=== PATIENT | female | born 1990 | race African-American/Black ===

== ENCOUNTER 2022-03-06 21:22 | Emergency (ER) | payer OTHER, SELFPAY ==
[2022-03-06 21:33] VITALS: BP 138/87; PULSE 90; RESP 18; TEMP 36.8; O2SAT 100
[2022-03-06 21:57] LABS: Appearance Urine Clear (Clear); Bilirubin Urine Negative (Negative); Blood Urine 1+ (Negative); Color Urine Yellow (Yellow); Glucose Urine UA Negative (Negative); Ketones Urine Negative (Negative); Leukocyte Esterase Ur Negative LEU/UL (Negative); Nitrate Urine Negative (Negative); Protein Urine Negative (Negative); Specific Grav Ur >= 1.030 (1.001-1.035); Urobilinogen Urine 0.2 mg/dL (<2.0); pH Urine 5.5 (5.0-9.0)
[2022-03-06 22:05] LABS: Bacteria Urine Trace /hpf; Mucus Urine Rare /lpf; Squamous Epithelial Cell Urine Many /hpf (Few)
[2022-03-06 22:06] LABS: Add Urine Microscopic? YES
--- NOTE | 2022-03-06 22:30 | ED.FEMALEGU ---
HPI - Female Genitourinary General Chief complaint: Urogenital-Female Stated complaint: dysuria Time Seen by Provider: 03/06/22 21:34 History of Present Illness HPI Narrative: 31-year-old female presents the emergency room with complaints of intermittent low back pain and occasional dysuria for 3 days. Patient states this is similar to her prior urinary tract infections. Patient denies any abdominal pain, suprapubic pain, or fever. Related Data Allergies Allergy/AdvReac Type Severity Reaction Status Date / Time Penicillins Allergy Hives Verified 03/06/22 21:40 Review of Systems Review of Systems: CONSTITUTIONAL: Denies fever, chills, or sweats. EYES: Denies visual changes, redness, or discharge. ENT: Denies rhinorrhea, congestion, sore throat, or otalgia. CARDIOVASCULAR: Denies chest pain, palpitations, or edema. RESPIRATORY: Denies cough or dyspnea. GASTROINTESTINAL: Denies abdominal pain, nausea, vomiting, or diarrhea. GENITOURINARY: Reports dysuria or hematuria. SKIN: Denies rash or itching. MUSCULOSKELETAL: Reports back pain NEUROLOGIC: Denies headache, numbness, dizziness, or weakness. PSYCHIATRIC: Denies anxiety or depression. Exam Narrative: GENERAL: Well-appearing, well-nourished, and in no acute distress. HEAD: Normocephalic, atraumatic. EYES: PERRLA and EOMI. CHEST: Clear to auscultation. No respiratory distress. No wheezes rales or rhonchi HEART: Regular rate and rhythm. No murmur heard. Normal peripheral pulses. ABDOMEN: Soft, nontender, nondistended, normal active bowel sounds. No CVA tenderness, no suprapubic pain EXTREMITIES: Normal range of motion. No edema. SKIN: Warm, dry, no rash. NEURO: No focal deficits. Alert and oriented x3. PSYCH: Normal mood and affect. Course Vital Signs Vital signs: Vital Signs Temperature 36.8 C 03/06/22 21:33 Pulse Rate 90 03/06/22 21:33 Respiratory Rate 18 03/06/22 21:33 Blood Pressure 138/87 03/06/22 21:33 Pulse Oximetry 100 03/06/22 21:33 Oxygen Delivery Room Air 03/06/22 21:33 Temperature 36.8 C 03/06/22 21:33 Pulse Rate 90 03/06/22 21:33 Respiratory Rate 18 03/06/22 21:33 Blood Pressure 138/87 03/06/22 21:33 Pulse Oximetry 100 03/06/22 21:33 Oxygen Delivery Room Air 03/06/22 21:33 MDM - Female Genitourinary Lab Data Labs: Lab Results 03/06/22 Range/Units 21:46 Urine Color Yellow (Yellow) Urine Appearance Clear (Clear) Urine pH 5.5 (5.0-9.0) Ur Specific [facility] >= 1.030 (1.001-1.035) Urine Protein Negative (Negative) mg/dL Urine Glucose (UA) Negative (Negative) mg/dL Urine Ketones Negative (Negative) mg/dL Ur Blood (Man) 1+ H (Negative) Urine Nitrate Negative (Negative) Urine Bilirubin Negative (Negative) Urine Urobilinogen 0.2 (<2.0) mg/dL Leukocyte Esterase Rfl Negative (Negative) MARYBETH/UL Urine RBC 3-5 H (0-2) /hpf Urine WBC 4-6 H /hpf Ur Squamous Epith Cells Many H (Few) /hpf Urine Bacteria Trace /hpf Urine Mucus Rare /lpf UCG Bedside Result Negative Reference Range: Negative Discharge Plan Discharge Clinical Impression: Urinary tract infection Patient Disposition: Home, Self-Care Condition: Stable Instructions: Antibiotic Form, Urinary Tract Infection in Women (ED) Prescriptions: New nitrofurantoin monohyd/m-cryst [Macrobid] 100 mg capsule 100 mg PO Q12H 5 Days Qty: 10 0RF Rx Instructions: must administer with a meal/food Follow-up/Referrals: UNKNOWN,DOCTOR [Non-Staff] - Time of Disposition: 22:32
[2022-03-06 23:13] VITALS: BP 114/77; PULSE 78; RESP 20; TEMP 36.6; O2SAT 98
== END 2022-03-06 23:14 | disposition home or self-care (01) ==
LOC: ANHED 23:03
PROVIDERS: Emergency Provider Nurse Practitioner Family
DX: N39.0 Urinary tract infection, site not specified (principal)
CPT/HCPCS: 81001; 81025; 99283

== ENCOUNTER 2022-09-01 19:15 | Emergency (ER) | payer OTHER, SELFPAY ==
[2022-09-01 19:21] VITALS: BP 99/70; PULSE 106; RESP 20; TEMP 38.5; O2SAT 99
--- NOTE | 2022-09-01 20:13 | ED.GENADULT ---
HPI - General Adult General Chief complaint: Upper Respiratory Infection Stated complaint: uri Time Seen by Provider: 09/01/22 19:49 Source: RN notes reviewed History of Present Illness HPI narrative: Patient presents emergency department from home for upper respiratory infection. Patient states symptoms began 4 days ago. States that she has been having fevers, rhinorrhea, sore throat and a cough that has been nonproductive she denies any chest pain or shortness of breath she denies any abdominal pain nausea vomiting. States she took Tylenol earlier today for her fever Related Data Allergies Allergy/AdvReac Type Severity Reaction Status Date / Time Penicillins Allergy Hives Verified 03/06/22 21:40 Review of Systems Review of Systems: General: Reports fevers and chills Eyes: Denies eye pain or visual change ENT: See HPI Respiratory: Denies shortness of breath reports cough CV: Denies chest pain or palpitations GI: Denies abdominal pain nausea, emesis or diarrhea Musculoskeletal: Denies back pain or muscle pain Neuro: Denies numbness, tingling, weakness or focal weakness Skin: Denies rash Except as documented, all other systems reviewed and negative [facility] Past Medical History Medical History (Updated 09/01/22 @ 20:27 by Elliot Salinas DO) Patient denies significant medical history Social History Social History (Updated 09/01/22 @ 20:14 by Elliot Salinas DO) Smoking status: Never smoker Exam Narrative: APPEARANCE: No acute distress, nontoxic, resting in bed EYES: EOMI HEENT: Normocephalic, atraumatic, TMs clear bilaterally bilateral turbinates boggy, erythematous posterior pharynx and bilateral tonsils with no exudate uvula midline no trismus RESPIRATORY: No respiratory distress Clear to auscultation bilaterally with no rhonchi wheezing or rales. CARDIOVASCULAR: Regular rate and rhythm without murmurs rubs or gallops. ABDOMINAL: Soft, nontender, nondistended, no rebound or guarding MUSCULOSKELETAl: Moves all extremities. No clubbing, cyanosis or edema. NEURO: Awake and alert. Following commands, speech normal, no focal deficits SKIN:: Warm, dry. No rashes lesions or abrasions PSYCHIATRIC: Normal affect/mood, Course Course Emergency Course: Discussed with patient results of workup and diagnosis. Discussed need for follow-up with primary care, proper use of medication, and reasons to return to the emergency department. Patient understands and agrees to current treatment plan Vital Signs Vital signs: Vital Signs Temperature 101.3 F H 09/01/22 19:21 Pulse Rate 106 H 09/01/22 19:21 Respiratory Rate 20 09/01/22 19:21 Blood Pressure 99/70 L 09/01/22 19:21 Pulse Oximetry 99 09/01/22 19:21 Oxygen Delivery Room Air 09/01/22 19:21 Temperature 101.3 F H 09/01/22 19:21 Pulse Rate 106 H 09/01/22 19:21 Respiratory Rate 20 09/01/22 19:21 Blood Pressure 99/70 L 09/01/22 19:21 Pulse Oximetry 99 09/01/22 19:21 Oxygen Delivery Room Air 09/01/22 19:21 Medical Decision Making Vital Signs Vital Signs: Vital Signs Temperature 101.3 F H 09/01/22 19:21 Pulse Rate 106 H 09/01/22 19:21 Respiratory Rate 20 09/01/22 19:21 Blood Pressure 99/70 L 09/01/22 19:21 Pulse Oximetry 99 09/01/22 19:21 Oxygen Delivery Room Air 09/01/22 19:21 Temperature 101.3 F H 09/01/22 19:21 Pulse Rate 106 H 09/01/22 19:21 Respiratory Rate 20 09/01/22 19:21 Blood Pressure 99/70 L 09/01/22 19:21 Pulse Oximetry 99 09/01/22 19:21 Oxygen Delivery Room Air 09/01/22 19:21 Lab Data Labs: Lab Results 09/01/22 Range/Units 19:25 Influenza A (RT-PCR) Positive (Negative) Influenza B (RT-PCR) Negative (Negative) RSV (RT-PCR) Negative (Negative) SARS-CoV-2 RNA (RT-PCR) Negative Discharge Plan Discharge Clinical Impression: Influenza A Patient Disposition: Home, Self-Care Condition: Stable Instructions: Antibiotic Form, Influen
[2022-09-01 20:14] LABS: Influenza A QL RT-PCR Positive (Negative); Influenza B QL RT-PCR Negative (Negative); RSV RNA, RT-PCR Negative (Negative); SARS-CoV-2 RNA PCR Negative
[2022-09-01] MEDS: IBUPROFEN 600 MG TABLET PO (20:18)
== END 2022-09-01 20:42 | disposition home or self-care (01) ==
PROVIDERS: Emergency Medicine; Emergency Provider Emergency Medicine
DX: J10.1 Influenza due to other identified influenza virus with other respiratory manifestations (principal); Z20.822 Contact with and (suspected) exposure to COVID-19
CPT/HCPCS: 87502; 87634; 99283; A9270; U0003; U0005